=== PATIENT | male | born 1950 | race Caucasian/White ===

== ENCOUNTER 2021-04-09 12:03 | Emergency (ER) | payer OTHER, SELFPAY ==
[2021-04-09 12:19] VITALS: BP 113/75; PULSE 91; RESP 16; TEMP 36.8; O2SAT 93; BMI 25.0
--- NOTE | 2021-04-09 12:31 | ED_ITS ---
HPI - Altered Mental Status General: Chief Complaint: Altered Mental Status Stated Complaint: DIZZY/FATIGUE Time Seen by Provider: 04/09/21 12:31 History of Present Illness: HPI narrative: Mr Jackson is a 70-year-old gentleman with significant past medical history of chronic pain presents to the emergency department due to altered mental status. He reports extreme fatigue and lightheadedness with dizziness starting yesterday, he describes difficulty staying awake and unintentionally falling asleep. Symptoms progressed today such that he noticed difficulty thinking and also he noted difficulty thinking and also visual disturbances with possible double vision. Overall the intensity of symptoms has worsened. He denies other associated symptoms or trauma. He denies similar episodes in past. No other specific exacerbating or alleviating factors identified. He has been stable on his medications for an extended period of time but he does take morphine. Review of Systems General: Reports: 10 or more systems reviewed and unremarkable except in HPI and below Physical Exam Narrative: EXAM NARRATIVE: GENERAL/CONSTITUTIONAL -well appearing. No acute distress. Eyes - PERRL, 3 mm bilaterally,, no conjunctival injection ENMT - Atraumatic external nose and ears. Moist mucous membranes NECK - supple. trachea midline CARDIOVASCULAR - regular rate and rhythm. Peripheral pulses 2+ and equal RESPIRATORY -clear to auscultation bilaterally. No retractions or accessory muscle use. ABDOMEN/GI - Nontender, Nondistended. No tenderness to percussion or evidence of peritonitis MSK - Extremities without obvious deformity or tenderness to palpation SKIN - Warm, Dry NEURO - alert and appropriately oriented. Cranial nerves II through XII intact. Strength and sensation intact. Moves all extremities equally. Delayed res ponses. Mild encephalopathic appearance with abnormal affect. Course ED course: - Patient was seen and evaluated by me at bedside - Patient placed on cardiac monitors, IV access obtained - Initial evaluation notable for exam as noted above, mental status not normal though patient is oriented, no focal neurologic deficits appreciated on clinical exam. - Labs notable for no acute hematologic or metabolic abnormalities to explain patient's symptoms. ABG is mildly abnormal though compensated, mild elevation of PCO2 does not explain mental status, patient with normal oxygen saturation on monitor despite low PO2. - Imaging notable for sinusitis without other acute finding on head CT or CTA. - Despite period of observation patient's mental status continues to be abnormal, therefore MRI warranted. MRI is negative for acute stroke. If patient's mental status had been due to toxidrome I would have expected improvement by this time. - Upon serial reexamination after treatment the patient was similar - Based on patient history, evaluation, labs, and imaging as interpreted the most likely cause of the patient's condition is unspecified altered mental status. I discussed the results of ED evaluation with the patient, despite mental status changes I feel that he in conjugation with family at bedside can make reasonable medical decisions given thorough work-up at this time. I offered admission which the patient declined. He expressed logical and goal oriented reasoning including need to take care of his who has dementia. - The results of ED evaluation were discussed with the patient including prescriptions and/or symptomatic cares (if applicable) including appropriate and responsible use, followup plan, and return precautions. The patient verbalized understanding and felt safe for discharge. - Patient discharged in satisfactory condition. Vital Signs: Vital signs: Vital Signs Temperature 98.2 F 04/09/21 12:19 Pulse Rate 74 04/09/21 16:11 Respiratory Rate 16 04/09/21 12:19 Blood Pressure 121/89 04/09/21 16:11 Pulse Oximetry 94 04/09/21 15:00 MDM - Altered Mental Status Medical Records: Attestation: I reviewed the patient's medical records. Lab Data: Attestation: I reviewed the patient's lab results. Labs: Lab Results 04/09/21 04/09/21 04/09/21 12:45 12:45 12:45 WBC 7.7 10^3/uL 10^3/ uL (4.0-10.0) RBC 4.10 10^6/uL 10^6 /uL (4.1-5.3) Hgb 12.7 g/dL g/dL (11.7-16.6) Hct 39.4 % L % (42.0-52.0) MCV 96.1 fl H fl (80-94) MCH 31.0 pg pg (28.0-34.0) MCHC 32.2 g/dL g/dL (30.0-36.0) RDW 12.5 % % (12.1-15.1) Plt Count 115 10^3/cmm L 10 ^3/cmm (130-400) MPV 13.8 fL H fL (7.4-10.4) Neut % (Auto) 49.6 % % Lymph % (Auto) 30.4 % % Collier % (Auto) 12.2 % % Eos % (Auto) 6.2 % % Baso % (Auto) 1.2 % % Neut # (Auto) 3.83 10^3/uL 10^3 /uL (1.8-7.7) Lymph # (Auto) 2.3 10^3/uL 10^3/ uL (0.8-4.8) Collier # (Auto) 0.9 10^3/uL 10^3/ uL (0.2-0.9) Eos # (Auto) 0.5 10^3/uL 10^3/ uL (0.0-0.8) Baso # (Auto) 0.1 10^3/uL 10^3/ uL (0.0-0.1) Nucleated RBC % (a uto) 0 % % Nucleated RBCs # 0.0 /100WBC /100W BC Specimen Type Sample Site ABG pH ABG pCO2 ABG pO2 ABG HCO3 ABG Base Excess Suman Test Hematocrit O2 Delivery Device FiO2 Allocation Analyst ID Sodium 138 mmol/L mmol/L (136-145) Potassium 4.4 mmol/L mmol/L (3.5-5.1) Chloride 100 mmol/L mmol/L (98-107) Carbon Dioxide 29 mmol/L mmol/L (22-29) Anion Gap 13.4 (5-19) BUN 16 mg/dL mg/dL (8-23) Creatinine 0.5 mg/dL L mg/dL (0.7-1.2) GFR Calculation Not Reportable Glucose 96 mg/dL mg/dL (65-115) POC Glucose Calculated Osmolal ity 287 mOsm/kg mOsm/ kg (285-295) Lactate 1.2 mmol/L mmol/L (0.5-2.2) Calcium 9.2 mg/dL mg/dL (8.5-10.5) Total Bilirubin 0.2 mg/dL mg/dL (0.15-1.2) AST 24 U/L U/L (0-40) ALT 31 U/L U/L (0-41) Alkaline Phosphata se 68 IU/L IU/L (40-130) Troponin T Baselin e Troponin T 120 Min [place] Delta Troponin T Troponin T Hi Sens 6Hr Troponin T Hi Sens 6Hr Delta NT-Pro-B Natriuret Pep 98 pg/mL pg/mL (0-125) Total Protein 6.7 g/dL g/dL (6.6-8.7) Albumin 4.1 g/dL g/dL (3.5-5.2) Globulin 2.6 g/dL g/dL (1.3-4.6) TSH 3.04 uIU/mL uIU/m L (0.27-4.20) Urine Color Urine Appearance Urine pH Ur Specific Gravit y Urine Protein Urine Glucose (UA) Urine Ketones Urine Blood Urine Nitrate Urine Bilirubin Urine Urobilinogen Ur Leukocyte Norma ase 04/09/21 04/09/21 04/09/21 12:45 12:51 12:59 WBC RBC Hgb Hct MCV MCH MCHC RDW Plt Count MPV Neut % (Auto) Lymph % (Auto) Collier % (Auto) Eos % (Auto) Baso % (Auto) Neut # (Auto) Lymph # (Auto) Collier # (Auto) Eos # (Auto) Baso # (Auto) Nucleated RBC % (a uto) Nucleated RBCs # Specimen Type Arterial Sample Site Radial, left ABG pH 7.41 (7.35-7.45) ABG pCO2 49.7 mmHg H mmHg (35-45) ABG pO2 58.5 mmHg L mmHg (80.0-100.0) ABG HCO3 31.5 mmol/L H mmo l/L (22-26) ABG Base Excess 5.8 mmol/L H mmol /L (-2.0-2.0) Suman Test Pos Hematocrit 37.1 % L % (42-52) O2 Delivery Device Room air FiO2 21.0 % % Allocation Analyst ID Ed Sodium Potassium Chloride Carbon Dioxide Anion Gap BUN Creatinine GFR Calculation Glucose POC Glucose 90 mg/dL mg/dL (70-110) Calculated Osmolal ity Lactate Calcium Total Bilirubin AST ALT Alkaline Phosphata se Troponin T Baselin e 9 ng/L ng/L (0-15) Troponin T 120 Min [place] Delta Troponin T Troponin T Hi Sens 6Hr Troponin T Hi Sens 6Hr Delta NT-Pro-B Natriuret Pep Total Protein Albumin Globulin TSH Urine Color Urine Appearance Urine pH Ur Specific Gravit y Urine Protein Urine Glucose (UA) Urine Ketones Urine Blood Urine Nitrate Urine Bilirubin Urine Urobilinogen Ur Leukocyte Norma ase 04/09/21 04/09/21 04/09/21 14:13 15:08 20:25 WBC RBC Hgb Hct MCV MCH MCHC RDW Plt Count MPV Neut % (Auto) Lymph % (Auto) Collier % (Auto) Eos % (Auto) Baso % (Auto) Neut # (Auto) Lymph # (Auto) Collier # (Auto) Eos # (Auto) Baso # (Auto) Nucleated RBC % (a uto) Nucleated RBCs # Specimen Type Sample Site ABG pH ABG pCO2 ABG pO2 ABG HCO3 ABG Base Excess Suman Test Hematocrit O2 Delivery Device FiO2 Allocation Analyst ID Sodium Potassium Chloride Carbon Dioxide Anion Gap BUN Creatinine GFR Calculation Glucose POC Glucose Calculated Osmolal ity Lactate Calcium Total Bilirubin AST ALT Alkaline Phosphata se Troponin T Baselin e Troponin T 120 Min [place] 7.84 ng/L ng/L (0-15) Delta Troponin T -1.16 ABS# L ABS# (0-10) Troponin T Hi Sens 6Hr 10.11 ng/L ng/L (0-15) Troponin T Hi Sens 6Hr Delta 1.11 ng/L ng/L (0-12) NT-Pro-B Natriuret Pep Total Protein Albumin Globulin TSH Urine Color Straw (Yellow) Urine Appearance Clear (CLEAR) Urine pH 7 (5-7) Ur Specific Gravit y 1.010 (1.005-1.030) Urine Protein Neg (Negative) Urine Glucose (UA) Norm (Normal) Urine Ketones Negative (Negative) Urine Blood Neg (Negative) Urine Nitrate Negative (Negative) Urine Bilirubin Neg (Negative) Urine Urobilinogen Norm mg/dL mg/dL (Negative) Ur Leukocyte Norma ase Negative (Negative) EKG Data^: EKG 1: Attestation: I personally reviewed and interpreted this EKG as follows: EKG interpretation date: 04/03/21 EKG interpretation time: 12:37 Interpretation: Twelve-lead EKG shows a regular rhythm at a rate of 86. NC interval 171, QRS duration 106, QTc 400. Left axis deviation. Interpretation: Sinus rhythm, nonspecific ST segment abnormalities. EKG 2: Attestation: I personally reviewed and interpreted this EKG as follows: EKG interpretation date: 04/09/21 EKG interpretation time: 14:24 Interpretation: Twelve-lead EKG shows a regular rhythm at a rate of 75. NC interval 182, QRS duration 105, QTc 416. Left axis deviation. Interpretation: Sinus rhythm. Nonspecific ST segment abnormalities. Discharge Plan Discharge Patient Disposition: Home Clinical Impression: Altered mental status, Sinusitis Condition: Stable Prescriptions: New cefuroxime axetil 250 mg tablet 250 mg PO BID 7 Days Qty: 14 RF: 0 No Action morphine 60 mg tablet extended release 60 mg PO TID PRN (Reason: Pain) RF: 0 baclofen 10 mg tablet 10 mg PO TID PRN (Reason: Pain) RF: 0 mirtazapine 15 mg tablet 15 mg PO BEDTIME RF: 0 Discharge Orders: Discharge ED (Routine); Ordered 04/09/21 Ordered By: Jm Jensen Discharge Diet: Usual diet Discharge Activity: Resume usual activity Patient Instructions: Sinusitis (ED), Altered Mental Status (ED), Opioid Safety Activity Restrictions/Additional Instructions: Thank you for visiting the emergency department. You were seen and evaluated for altered mental status and falling asleep. The exact cause of your symptoms is unclear. Please follow-up with your primary care provider. Please return the emergency department for worsening symptoms, any new neurologic symptoms, or anything else that you are concerned about and feel needs emergency department evaluation. You will be treated for sinusitis with antibiotics. Please return to the emergency department for any signs of allergic reaction to the medications. Coding Level of Care Code ED Packing Room Inspector for Geraldo Peoples
--- NOTE | 2021-04-09 12:41 | CTR_ITS ---
PROCEDURE INFORMATION: Exam: CT Head Without Contrast Exam date and time: 04/09/2021 12:41 PM Age: 70 years old Clinical indication: Altered mental status/memory loss and malaise or fatigue; Confusion or disorientation; Patient HX: Ams/dizziness x 2 days TECHNIQUE: Imaging protocol: Computed tomography of the head without contrast. Radiation optimization: All CT scans at this facility use at least one of these dose optimization techniques: automated exposure control; mA and/or kV adjustment per patient size (includes targeted exams where dose is matched to clinical indication); or iterative reconstruction. COMPARISON: No relevant prior studies available. RADIATION DOSE METRICS: Total DLP (mGy-cm): 940.01 FINDINGS: Brain: Normal. No hemorrhage. Unremarkable white matter. No mass effect. Cerebral ventricles: No ventriculomegaly. Paranasal sinuses: Visualized sinuses are unremarkable. There are fluid levels present in the bilateral maxillary sinuses , the left ethmoid sinus, and the left sphenoid sinus. These findings likely represent acute sinusitis. Mastoid air cells: Visualized mastoid air cells are well aerated. Bones/joints: Unremarkable. No acute fracture. Soft tissues: Unremarkable. CT/CT head wo con* [id number] IMPRESSION: 1. No acute intracranial abnormality. 2. Acute sinusitis as noted. Radiation Dose CTDIVOL = (mGy): DLP = 940.01 (mGy-cm)
--- NOTE | 2021-04-09 12:41 | XRR_ITS ---
PROCEDURE INFORMATION: Exam: XR Chest Exam date and time: 04/09/2021 12:41 PM Age: 70 years old Clinical indication: Other: AMS TECHNIQUE: Imaging protocol: XR of the chest. Views: 1 view. COMPARISON: No relevant prior studies available. FINDINGS: Lungs: Unremarkable. No consolidation. Pleural spaces: Unremarkable. No pleural effusion. No pneumothorax. Heart/Mediastinum: Unremarkable. No cardiomegaly. Bones/joints: Unremarkable. XR/XR chest 1V portable [id number] IMPRESSION: No acute findings. Radiation Dose CTDIVOL = (mGy): DLP = (mGy-cm)
--- NOTE | 2021-04-09 12:41 | CTR_ITS ---
PROCEDURE INFORMATION: Exam: CT Angiography Head With Contrast, Arteriography Exam date and time: 04/09/2021 12:41 PM Age: 70 years old Clinical indication: Cognitive deficit and dizziness and giddiness; Altered mental status; Patient HX: Ams/dizziness x2 days TECHNIQUE: Imaging protocol: Computed tomography angiography of the head with contrast. Exam focused on the arteries. 3D rendering (Not supervised by radiologist): MIP and/or 3D reconstructed images were created by the technologist. Radiation optimization: All CT scans at this facility use at least one of these dose optimization techniques: automated exposure control; mA and/or kV adjustment per patient size (includes targeted exams where dose is matched to clinical indication); or iterative reconstruction. Contrast material: OMNI 350; Contrast volume: 95 ml; Contrast route: INTRAVENOUS (IV); COMPARISON: CT head wo con* [id number] 04/09/2021 2:40 PM RADIATION DOSE METRICS: Total DLP (mGy-cm): 2043.3 FINDINGS: ANTERIOR CIRCULATION: Right internal carotid artery: Unremarkable. Intracranial segment is patent with no significant stenosis. No aneurysm. Right middle cerebral artery: Unremarkable. No occlusion or significant stenosis. No aneurysm. Right anterior cerebral artery: Unremarkable. No occlusion or significant stenosis. No aneurysm. Left internal carotid artery: Unremarkable. Intracranial segment is patent with no significant stenosis. No aneurysm. Left middle cerebral artery: Unremarkable. No occlusion or significant stenosis. No aneurysm. Left anterior cerebral artery: Unremarkable. No occlusion or significant stenosis. No aneurysm. POSTERIOR CIRCULATION: Right vertebral artery: Asymmetrically large, No occlusion or significant stenosis. No aneurysm. Left vertebral artery: Asymmetrically small. No occlusion or significant stenosis. No aneurysm. Basilar artery: Unremarkable. No occlusion or significant stenosis. No aneurysm. Right posterior cerebral artery: Unremarkable. No occlusion or significant stenosis. No aneurysm. Left posterior cerebral artery: Unremarkable. No occlusion or significant stenosis. No aneurysm. Brain: No definite mass, mass effect, or midline shift. Cerebral ventricles: No ventriculomegaly. Bones/joints: Unremarkable. No acute fracture. Soft tissues: Unremarkable. IMPRESSION: No large vessel stenosis or occlusion. PROCEDURE INFORMATION: Exam: CT Angiography Neck With Contrast Exam date and time: 04/09/2021 12:41 PM Age: 70 years old Clinical indication: Cognitive deficit and dizziness and giddiness; Altered mental status; Patient HX: Ams/dizziness x2 days TECHNIQUE: Imaging protocol: Computed tomography angiography of the neck with contrast. 3D rendering (Not supervised by radiologist): MIP and/or 3D reconstructed images were created by the technologist. Radiation optimization: All CT scans at this facility use at least one of these dose optimization techniques: automated exposure control; mA and/or kV adjustment per patient size (includes targeted exams where dose is matched to clinical indication); or iterative reconstruction. Contrast material: OMNI 350; Contrast volume: 95 ml; Contrast route: INTRAVENOUS (IV); COMPARISON: CT head wo con* [id number] 04/09/2021 2:40 PM RADIATION DOSE METRICS: Total DLP (mGy-cm): 2044.3 FINDINGS: Right common carotid artery: No stenosis. No dissection or occlusion. Right internal carotid artery: No stenosis of the extracranial segment. No dissection or occlusion. Right external carotid artery: No occlusion or stenosis of the origin. Left common carotid artery: No stenosis. No dissection or occlusion. Left internal carotid artery: No stenosis of the extracranial segment. No dissection or occlusion. Left external carotid artery: No occlusion or stenosis of the origin. Right vertebral artery: No stenosis. No dissection or occlusion. Left vertebral artery: No stenosis. No dissection or occlusion. Soft tissues: Normal. No significant soft tissue swelling. Bones/joints: No acute fracture. CT/CT angio headneck* [id number] IMPRESSION: No stenosis or occlusion. REFERENCES: NASCET CRITERIA. The degree of internal carotid artery stenosis is based on NASCET criteria. Normal is no stenosis. Mild is less than 50% stenosis. Moderate is 50-69% stenosis. Severe is 70% to 99% stenosis. Total occlusion is no detectable patent lumen. Radiation Dose CTDIVOL = (mGy): DLP = 2044.3~2044.3 (mGy-cm)
--- NOTE | 2021-04-09 12:42 | ECG_ITS ---
[facility] Test Date: 2021-04-09 Pat Name: Addison Jackson Department: Room: Gender: Male Alignment Mechanic: : 1950 Requested By: Jm Jensen Order Number: [id number] Reading MD: SERENA REILLY Measurements Intervals [place] Rate: 86 P: 22 NC: 171 QRS: -33 QRSD: 106 T: -6 QT: 357 QTc: 428 Interpretive Statements SINUS RHYTHM LEFT AXIS DEVIATION [QRS AXIS < -30] LOW QRS VOLTAGE IN PRECORDIAL LEADS [QRS DEFLECTION < 1.0 mV IN CHEST LEADS] INCOMPLETE RIGHT BUNDLE BRANCH BLOCK [90+ ms QRS DURATION, TERMINAL R IN V1/V2, 40+ ms S IN I/aVL/V4/V5/V6] POSSIBLE ANTERIOR MYOCARDIAL INFARCTION , PROBABLY OLD [30 ms Q WAVE IN V3/V4, OR R < 0.2 mV IN V4] No previous ECG available for comparison Electronically Signed On 04-11-2021 12:54:53 THEATRICAL SCENIC DESIGNER by SERENA REILLY [id number] f
[2021-04-09 12:55] LABS: Glucose Point of Care 90 mg/dL (70-110)
[2021-04-09 13:09] LABS: ABG PCO2 49.7 mmHg (35-45); ABG PH Result 7.41 (7.35-7.45); Arterial Blood Gas Hematocrit 37.1 % (42-52); Base Excess ABG 5.8 mmol/L (-2.0-2.0); Blood Gas Allen Test Pos; Blood Gas Operator Identificat ED; Blood Gas Sample Site Radial, left; Blood Gas Sample Type Arterial; HCO3 ABG 31.5 mmol/L (22-26); Oxygen Device ROOM AIR; PO2 ABG 58.5 mmHg (80.0-100.0)
[2021-04-09 13:40] LABS: Basophils # 0.1 10^3/uL (0.0-0.1); Basophils % 1.2 %; Eosinophils # 0.5 10^3/uL (0.0-0.8); Eosinophils % 6.2 %; Hematocrit 39.4 % (42.0-52.0); Hemoglobin 12.7 g/dL (11.7-16.6); Lymphocytes # 2.3 10^3/uL (0.8-4.8); Lymphocytes % 30.4 %; Mean Corpuscular HGB Conc 32.2 g/dL (30.0-36.0); Mean Corpuscular Volume 96.1 fl (80-94); Mean Platelet Volume 13.8 fL (7.4-10.4); Monocytes # 0.9 10^3/uL (0.2-0.9); Monocytes % 12.2 %; Neutrophils # 3.83 10^3/uL (1.8-7.7); Neutrophils % 49.6 %; Nucleated Red Blood Cells % 0 %; Platelet Count 115 10^3/cmm (130-400); Red Cell Distribution Width 12.5 % (12.1-15.1); White Blood Count 7.7 10^3/uL (4.0-10.0)
[2021-04-09 13:48] LABS: Lactate (Lactic Acid level) 1.2 mmol/L (0.5-2.2)
[2021-04-09 13:50] LABS: Troponin(5th) Baseline 9 ng/L (0-15)
[2021-04-09 14:01] LABS: Alanine Aminotransferase 31 U/L (0-41); Albumin Level 4.1 g/dL (3.5-5.2); Alkaline Phosphatase 68 IU/L (40-130); Anion Gap 13.4 (5-19); Aspartate Amino Transferase 24 U/L (0-40); Blood Urea Nitrogen 16 mg/dL (8-23); Calcium 9.2 mg/dL (8.5-10.5); Carbon Dioxide 29 mmol/L (22-29); Chloride 100 mmol/L (98-107); Globulin 2.6 g/dL (1.3-4.6); Glucose 96 mg/dL (65-115); NT Pro B Type Natriuretic Pept 98 pg/mL (0-125); Osmolality Calculated 287 mOsm/kg (285-295); Potassium 4.4 mmol/L (3.5-5.1); Sodium 138 mmol/L (136-145); Thyroid Stimulating Hormone 3.04 uIU/mL (0.27-4.20); Total Bilirubin 0.2 mg/dL (0.15-1.2); Total Protein 6.7 g/dL (6.6-8.7)
[2021-04-09 14:25] VITALS: PULSE 75; O2SAT 97
--- NOTE | 2021-04-09 14:42 | ECG_ITS ---
[facility] Test Date: 2021-04-09 Pat Name: Addison Jackson Department: Room: Gender: Male Adjustment Clerk: : 1950 Requested By: Jm Jensen Order Number: [id number] Reading MD: SERENA REILLY Measurements Intervals [place] Rate: 75 P: 30 CA: 182 QRS: -26 QRSD: 105 T: 5 QT: 387 QTc: 433 Interpretive Statements SINUS RHYTHM LOW QRS VOLTAGE IN PRECORDIAL LEADS [QRS DEFLECTION < 1.0 mV IN CHEST LEADS] INCOMPLETE RIGHT BUNDLE BRANCH BLOCK [90+ ms QRS DURATION, TERMINAL R IN V1/V2, 40+ ms S IN I/aVL/V4/V5/V6] POSSIBLE ANTERIOR MYOCARDIAL INFARCTION , PROBABLY OLD [30 ms Q WAVE IN V3/V4, OR R < 0.2 mV IN V4] Compared to ECG 04/09/2021 12:33:43 Left-axis deviation no longer present Myocardial infarct finding still present Electronically Signed On 04-11-2021 13:00:24 DRUPAL PHP DEVELOPER by SERENA REILLY [id number]
[2021-04-09] MEDS: iohexol 350 mg/mL 100 mL Btl IV (14:50)
[2021-04-09 15:00] VITALS: PULSE 74; O2SAT 94
[2021-04-09 15:04] LABS: Add Urine Microscopic? NO; Charge for UA Resulting for Rev
[2021-04-09 15:19] LABS: Bilirubin Urine Neg (Negative); Blood Urine Neg (Negative); Glucose Urine UA Norm (Normal); Ketones Urine Negative (Negative); Leukocyte Esterase Urine Negative (Negative); Nitrate Urine Negative (Negative); Protein Urine Neg (Negative); Urine Appearance Clear (CLEAR); Urine Color Straw (Yellow); Urobilinogen Urine Norm (Negative); pH Urine 7 (5-7)
[2021-04-09 15:54] LABS: Troponin 5 2HR 7.84 ng/L (0-15)
[2021-04-09 15:55] LABS: Troponin 5 2HR Delta -1.16 ABS# (0-10)
[2021-04-09 16:11] VITALS: BP 121/89; BP 122/95; BP 124/87; PULSE 74; PULSE 80; PULSE 87
--- NOTE | 2021-04-09 16:35 | MRR_ITS ---
PROCEDURE INFORMATION: Exam: MR Head Without Contrast Exam date and time: 04/09/2021 4:35 PM Age: 70 years old Clinical indication: Altered mental status/memory loss and dizziness; Confusion or disorientation; Additional info: Dizziness, AMS TECHNIQUE: Imaging protocol: MR of the head without contrast. COMPARISON: CT head wo con* [id number] 04/09/2021 2:40 PM FINDINGS: Brain: Mild periventricular white matter hyperintensities can represent very mild chronic small vessel ischemic change. No restricted diffusion. Cerebral ventricles: Normal. No ventriculomegaly. Bones/joints: Unremarkable. Paranasal sinuses: Fluid and mucosal thickening noted in multiple paranasal sinuses. Mastoid air cells: Normal as visualized. No mastoid effusion. Orbital cavity: Unremarkable. Soft tissues: Unremarkable. MR/MR head wo con* [id number] IMPRESSION: Sinus inflammatory changes. No acute intracranial findings. Radiation Dose CTDIVOL = (mGy): DLP = (mGy-cm)
[2021-04-09 21:11] LABS: Troponin 5 6HR 10.11 ng/L (0-15); Troponin 5 6HR Delta 1.11 ng/L (0-12)
== END 2021-04-09 20:41 | disposition home or self-care (01) ==
PROVIDERS: Emergency Provider Emergency Medicine
DX: R41.82 Altered mental status, unspecified (principal); J32.9 Chronic sinusitis, unspecified
CPT/HCPCS: 36416; 36600; 70450; 70496; 70498; 70551; 71045; 80053; 81003; 82803; 82962; 83605; 83880; 84443; 84484; 85025; 93005; 99283; Q9967

== ENCOUNTER 2022-02-10 09:32 | Outpatient (CLI) | payer OTHER, SELFPAY ==
--- NOTE | 2022-02-10 | ECG_ITS ---
[facility] Test Date: 2022-02-10 Pat Name: Addison Jackson Department: Room: Gender: Male Associate Buyer: : 1950 Requested By: SEFERINO Contreras Order Number: [id number] Brie MD: Satish Post M.D. Interpretive Statements NAME OF STUDY: LEXISCAN INDICATION: [cp on exertion, ] Procedure: At the baseline, the blood pressure was 113/81mmHg with a heart rate of 56 bpm. The electrocardiogram showed normal sinus bradycardia, normal axis with normal ST and T's. The Lexiscan was infused over a period of 20 seconds. A total of 0.4 mg of Lexiscan was infused. The stress phase was continued for a total of 5 minutes. Heart rate was at the end of stress phase was 74 bpm and a blood pressure of 108/67 mmHg. The EKG at the peak infusion revealed normal sinus rhythm with no significant ST-T wave changes. Sestamibi was injected 20 seconds after the Lexiscan infusion. Blood pressure at the end of recovery phase was 109/69 mmHg with a heart rate of 70 bpm. Conclusion: 1. Normal EKG response to Lexiscan infusion 2. No Lexiscan induced chest pain or cardiac arrhythmia. 3. Normal blood pressure and heart rate response. 4. Sestamibi/sestamibi perfusion scan pending; see separate report. Electronically Signed On 02-20-2022 10:03:16 CDT by Satish Post M.D. [id number]
[2022-02-10 09:51] VITALS: BMI 24.3
--- NOTE | 2022-02-10 10:17 | NMCV_ITS ---
NM alison perf SPECT r/s* [id number] Addison Jackson Age: 71 Gender: M : 1950 Exam Date: 02/10/2022 10:17 Ordering Phys: SEFERINO CAMARA Technologist: DENIA Jennings Exam Location: [facility] Indications: Chest Pain, Shortness of Breath STRESS TEST Please see separate stress test report [facility] for full findings IMAGE PROTOCOL Rest/Stress 1 Lexiscan Day Radiopharmaceutical Dose (mCi) Administration Site Administered by Rest: Tc-99m 11.0 IV Evie Louisa, SENIOR NET DEVELOPER Sestamibi Stress:Tc-99m 32.6 IV Evie Louisa, SENIOR NET DEVELOPER Sestamibi Rest: 10-Feb-2022 60 Discovery 630 Stress: 10-Feb-2022 30 Discovery 630 0.4mg Lexiscan. Images obtained in supine and prone position. SPECT RESULTS Technical Quality: Excellent Raw Data Analysis: Normal Image Corrections: No attenuation or motion correction applied Summed Stress Score: 2 Summed Rest Score: 1 Summed Difference Score: 2 PERFUSION FINDINGS There is a small in size, reversible perfusion defect in apical lateral and inferolateral wall. This is consistent with small sized area of ischemia in left circumflex artery territory. FUNCTIONAL RESULTS (calculated via Gated SPECT) Stress Image LV EF (%): 63 Stress EDV (mL):91 TID: 0.87 Stress ESV (mL):34 FUNCTIONAL FINDINGS: There is normal left ventricular systolic function. IMPRESSIONS 1. Small sized area of ischemia seen in left circumflex artery territory. 2. Normal LV systolic function is normal. Satish Post MD (Electronically Signed) Final Date: 11 February 2022 22:28 S
[2022-02-10] MEDS: regadenoson 0.4 Mg/5 ml Syringe IVP (12:07)
[2022-02-10 12:31] VITALS: BP 109/69; PULSE 70
== END 2022-02-10 09:33 | disposition home or self-care (01) ==
PROVIDERS: PCP Nurse Practitioner Adult Health; Visit Provider Nurse Practitioner Adult Health
DX: R07.9 Chest pain, unspecified (principal); R06.02 Shortness of breath
CPT/HCPCS: 78452; 93017; A9500; J2785

== ENCOUNTER → 2022-05-10 12:11 | Outpatient (BNVA) | payer OTHER, SELFPAY | PROVIDERS: PCP Nurse Practitioner Adult Health; Visit Provider Internal Medicine | DX: R07.9 Chest pain, unspecified (principal); M06.9 Rheumatoid arthritis, unspecified | CPT/HCPCS: 93005; 99204 ==

== ENCOUNTER 2022-05-23 07:38 | Outpatient (CLI) | payer OTHER, SELFPAY ==
[2022-05-23] VITALS (24 sets, daily range): BP systolic 80–115; BP diastolic 50–78; PULSE 49–66; RESP 6–20; TEMP 36.6; O2SAT 85–100; BMI 25.8
--- NOTE | 2022-05-23 07:30 | XACV_ITS ---
Exam Room: 2 Ht: 175 cm Wt: 79 kg BSA: 1.98 m2 Gender: Male : 1950 Any Known Allergies: Penicillins Exam Priority: Routine Procedure(s): Procedure Description: Diagnostic procedure Procedure Description: Left Heart Catheterization Procedure Description: Left ventriculography Procedure Description: Coronary Angiography Diagnostic Cath Status: Elective Diagnostic Findings * INDICATION: 72-year-old man with past medical history of hyperlipidemia and rheumatoid arthritis who has been having on and off chest discomfort episodes for the last 1 year. Has noted recent worsening of symptoms. He had stress test performed recently that showed ischemia in left circumflex artery territory. Plan for coronary angiogram with possible percutaneous coronary intervention. * No significant disease noted in the Left Main, Left Anterior Descending, Right, or Circumflex coronary arteries. * Coronary angiography shows right dominance. Conclusions 1. No significant disease noted in the Left Main, Left Anterior Descending, Right, or Circumflex coronary arteries. 2. Normal left ventricular systolic function. Ejection fraction of 55%. Recommendations * Aggressive risk factor modification. * Outpatient cardiology follow up in 4 weeks. Interventional RX Recommendation: medical therapy and/or counseling Diagnostic RX Recommendation: medical therapy and/or counseling Anticoagulation: Heparin Ventriculography Ejection Fraction: 55.0 % Pressures Phase:Rest AO : 98 / 64 ( 80 ) @ 10:16:00 AM 102 / 61 ( 79 ) @ 10:22:00 AM 101 / 59 ( 78 ) @ 10:22:00 AM LV : 102 / -2 / 16 @ 10:21:00 AM 96 / 3 / 14 @ 10:22:00 AM 99 / 2 / 19 @ 10:22:00 AM Valves Phase:DefaultPhase AV : 0.0 @ 10:27:43 AM AV Mean Gradient: 0.0 @ 10:27:43 AM Clinical Evaluation EBL: 5mL-10mL Procedural Details Procedure Consent Obtained. Admit Source: Out Patient. Pre-Procedure Time Out. Identified patient by full name and date of as verbalized by the patient/guarantor. Does the consent match the physician's order: Yes. Accurate & Complete Informed Consent: Yes. Inpatient/Outpatient History & Physical on Chart: Yes. If H&P is completed, is and addenduem needed: No; If yes, is the addendum complete: N/A. Visualize and Verify Site with Patient/Guarantor: N/A. Relevant Radiology Images available: N/A. The risks, benefits, and alternatives of sedation and/or procedure were discussed by physician. The patient agrees to continue. Procedure started. [facility] Clinical Fraility Score: 4: Vulnerable. 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 Chest Pain Symptom Assessment: Typical Angina Symptoms. Cardiovascular Instability: No. Correct patient, site and procedure confirmed by cath team. Current diagnosis: Chest Pain. PERRLA. Strong, equal hand pediatric oncology nurse bilaterally. Lungs clear x 5 lobes. IV Site on Arrival: 20 gauge in the left anticubital. IV Fluids: 0.9% NaCl at KVO. 0 mL infused prior to director of labor relations. Pre Procedural Pulses: bilateral radial was 3+. Pre Procedural Pulses: bilateral posterior tibial was 2+. Pre Procedural Pulses: bilateral dorsalis pedis was 2+. Oxygen started at 2liters/min via nasal canula. right groin was prepped with chloroprep then draped in the usual sterile fashion. right radial was prepped with chloroprep then draped in the usual sterile fashion. Physician notified. Baseline sample Acquired. HR: 56 BPM. Physician arrived. Physician scrubbed in. Immediate Pre-Procedure Time Out. Correct Patient: Yes; Correct Procedure: Yes; Correct Site: Yes; Correct Patient Position: Yes; Correct Supplies: Yes; Dried Flammable Prep: Yes; Blood Products Available: N/A;. Lidocaine 1% infiltrated to the right radial. Arterial access obtained. A 5 bangladeshi TIG catheter in over wire. Multiple views taken of left coronary artery. Catheter redirected to the RCA. Multiple views taken of right coronary artery. Catheter out. A 5 bangladeshi Angled Pig catheter in over wire. EDP Sample taken: LV 102/-3,16; HR: 58 BPM; SpO2: 99%. Aortogram performed in LUNDY @ 10 mL/second for a total of 30 mL. EDP Sample taken: LV 96/3,14; HR: 46 BPM; SpO2: 99%. Pullback taken: LV 99/2,19; AO 102/61(79); Mean: 0mmHg, Peak to Peak: 0mmHg, SEP: 4sec/min; HR: 57 BPM; SpO2: 99%. A TR Band was successful obtaining hemostatsis at the Right Radial artery insertion site. Post Procedure: Pulses reassessed and unchanged. PERRLA. Strong, equal hand pediatric oncology nurse bilaterally. No VTE prophylaxis required. Medication's Wasted: Nitro = 49.8 mg. Medication's Wasted: Heparin = 1000 units. Total IV fluids: 50 mL. Post-op diagnosis: non-obstructive CAD. Complications: none. Estimated blood loss: 5mL-10mL. Responsiveness - Normal response to verbal stimuli; alert and oriented, PERRLA. Airway - Unaffected, no intervention required; spontaneous ventilation. Circulation: W/N/L, pulses unchanged. Nausea/Vomiting: No. Procedure completed. Patient transferred by bed to CPRU. Vital chart was stopped. Access Site Site: Right Radial artery Sheath Size: 6 Fr Hemostasis Method: TR Band Hemostasis Success: Successful Procedure Medications Start: 10:11 AM Stop: 10:11 AM Medication: Versed Amount: 1 mg Route: I.V. Start: 10:11 AM Stop: 10:11 AM Medication: Fentanyl Amount: 50 mcg Route: I.V. Start: 10:13 AM Stop: 10:13 AM Medication: Nitrogylcerin Amount: 200 mcg Route: I.A. Start: 10:17 AM Stop: 10:17 AM Medication: Versed Amount: 1 mg Route: I.V. Start: 10:17 AM Stop: 10:17 AM Medication: Fentanyl Amount: 50 mcg Route: I.V. Start: 10:17 AM Stop: 10:17 AM Medication: Heparin Amount: 5000 units Route: I.V. I, the attending physician, have reviewed and verified all procedure medications. Yes, all medications given per verbal order History/Risk Factors Hypertension: No Dyslipidemia: Yes Peripheral Arterial Disease (PAD): No Myocardial Infarction (AR): No Obesity: No Tobacco Use: Never Prior Interventions PCI: No CABG: No Valve Surgery: No Report Signatures Finalized by Satish Post MD on 05/25/2022 12:30 PM
[2022-05-23] MEDS: diphenhydrAMINE 50 mg Capsule PO (08:20)
[2022-05-23 08:37] LABS: Basophils # 0.1 10^3/uL (0.0-0.1); Basophils % 1.2 %; Eosinophils # 0.5 10^3/uL (0.0-0.8); Eosinophils % 7.1 %; Hematocrit 38.3 % (42.0-52.0); Hemoglobin 12.2 g/dL (11.7-16.6); Lymphocytes # 3.1 10^3/uL (0.8-4.8); Lymphocytes % 40.6 %; Mean Corpuscular HGB Conc 31.9 g/dL (30.0-36.0); Mean Corpuscular Hemoglobin 30.8 pg (28.0-34.0); Mean Corpuscular Volume 96.7 fl (80-94); Mean Platelet Volume 11.4 fL (7.4-10.4); Monocytes # 0.7 10^3/uL (0.2-0.9); Monocytes % 8.9 %; Neutrophils # 3.19 10^3/uL (1.8-7.7); Neutrophils % 41.9 %; Nucleated Red Blood Cells % 0 %; Platelet Count 184 10^3/cmm (130-400); Red Blood Count 3.96 10^6/uL (4.1-5.3); Red Cell Distribution Width 13.3 % (12.1-15.1); White Blood Count 7.6 10^3/uL (4.0-10.0)
[2022-05-23 08:57] LABS: Blood Urea Nitrogen 30 mg/dL (8-23); Calcium 8.5 mg/dL (8.5-10.5); Carbon Dioxide 28 mmol/L (22-29); Chloride 103 mmol/L (98-107); Glucose 89 mg/dL (65-115); Osmolality Calculated 296 mOsm/kg (285-295); Sodium 140 mmol/L (136-145)
--- NOTE | 2022-05-23 10:07 | W.PM.OPSUD ---
Surgery/Procedure H&P Update DATE OF PROCEDURE: May 23, 2022 DATE H&P PERFORMED: 05/10/22 H&P UPDATE INFORMATION: I have reviewed H&P completed within last 30 days, I have examined patient prior to procedure and No changes to prior documentation PREOP DIAGNOSIS: Chest pain/abnormal stress test PRIMARY INDICATION FOR PROCEDURE: Chest pain/abnormal stress test PLANNED PROCEDURE: Operation Date: 05/23/22 08:30 Proposed Procedures p Left Heart Cath 39189,R94.39,R07.9,R06.09(Left) - Satish Post M.D Possible percutaneous coronary intervention PATIENT REASSESSED PRIOR TO SEDATION, WITH NO CHANGE NOTED: Yes PHYSICAL EXAM: alert, oriented x 3, clear to auscultation bilaterally and regular rate & rhythm AIRWAY EVAL/ANESTHESIA PLAN: normal airway, ASA III, Risks, benefits & alternatives of sedation and/or procedure discussed and Patient agrees to continue as planned ADDITIONAL INFORMATION: Moderate sedation
--- NOTE | 2022-05-23 13:07 | PC.NURSE ---
Around 1230: Transfer orders received. Vitals stable, TR Band in place. Report given to GIBSON Shields. Patient transferred to CSU, all personal belongings sent with patient to room.
--- NOTE | 2022-05-23 19:15 | PC.NURSE ---
Pt discharged home at approximately 1700. Pts discharge instructions given along with follow up appointments. Pts IV removed no redness or swelling noted. Pt had no c/o pain or discomfort at the time of discharge. Pt transferred out via wheel chair accompanied by staff.
== END 2022-05-23 17:30 | disposition home or self-care (01) ==
LOC: CCL 07:41 → CSU 12:48
PROVIDERS: PCP Nurse Practitioner Adult Health; Visit Provider Internal Medicine
DX: R07.89 Other chest pain (principal); R94.39 Abnormal result of other cardiovascular function study; E78.5 Hyperlipidemia, unspecified; M06.9 Rheumatoid arthritis, unspecified; I45.10 Unspecified right bundle-branch block
CPT/HCPCS: 36415; 80048; 85025; 93458; 96361; 96365; 99152; C1769; C1887; C1894; J1644; J2250; J3010; J3490; J7030; Q0163; Q9967

== ENCOUNTER 2023-02-05 13:02 | Emergency (ER) | payer OTHER, SELFPAY ==
[2023-02-05 13:04] VITALS: BP 138/69; PULSE 66; RESP 16; TEMP 36.7; O2SAT 93; BMI 26.6
--- NOTE | 2023-02-05 13:25 | ED_ITS ---
HPI - Dizziness General: Chief Complaint: Dizziness Stated Complaint: dizziness Time Seen by Provider: 02/05/23 13:06 Source: patient Mode of arrival: EMS History of Present Illness: HPI Narrative: 72-year-old male presents emergency room via EMS he had an episode of dizziness at home he states he was repositioning self in bed and something at very dizzy he says he felt like his eyes were moving rapidly after about 10 to 15 minutes resolved he is able to get up and walk and get a drink he had a slight recurrence of dizziness but that is resolved as well when he arrives here he is completely asymptomatic no recent falls or head trauma. Is not on any oral anticoagulation. He has had problems with vertigo in the past. He states this is somewhat worse. He had some nausea but never vomited. No other focal symptoms either prior to arrival or on arrival here. Symptoms not reproducible at this time. MD elicited complaint: dizziness Pertinent past history: BPPV Onset (ago): hour(s) Timing: sudden onset Severity: moderate Description: sense of movement and room spinning Context: change in body position History of similar symptoms: Yes Exacerbating factors: nothing Relieving factors: nothing Associated symptoms: Denies abnormal vaginal bleeding, change in hearing, chest pain, chills, cough, diaphoresis, ear discharge, ear pressure, fevers/chills, headache(s), malaise, nausea, nasal congestion, palpitations, rash, short of breath, syncope, tinnitus, vomiting or weakness Associated neuro symptoms: Deny confusion, difficulty speaking, dysphagia, dipl opia, extremity weakness, facial numbness, facial weakness, gait changes, numbness in extremities or visual changes Review of Systems Const: Denies: fever(s), chills, fatigue, malaise or diaphoresis ENMT: Denies: throat pain, ear discharge, change in hearing, tinnitus or nasal congestion Card: Denies: chest pain, palpitations or syncope Resp: Denies: dyspnea, productive cough or non-productive cough GI: Denies: abdominal pain, nausea, vomiting or dysphagia : Denies: flank pain, dysuria, urinary frequency or urinary urgency Musc: Denies: neck pain or back pain Skin/Breast: Denies: rash or pruritus Neuro: Reports: vertigo; Denies: headache(s), numbness in extremities or confusion PFS ED PFSH: Medical History Rheumatoid arthritis Social History Smoking and tobacco status: never smoked Physical Exam Const: COMMON NORMALS: no acute distress GENERAL APPEARANCE: cooperative and comfortable ORIENTATION/CONSCIOUSNESS: Yes awake, Yes oriented to person, Yes oriented to place and Yes oriented to time HENMT: COMMON NORMALS: normocephalic, atraumatic and hearing grossly normal bi laterally HEAD & SCALP: normocephalic and atraumatic Resp: COMMON NORMALS: normal respiratory effort, No retractions, No use of accessory muscles and clear to auscultation bilaterally AUSCULTATION: clear to auscultation bilaterally Cardio: COMMON NORMALS: regular rate, regular rhythm and No murmurs present (Cardio) RATE: regular rate RHYTHM: regular rhythm GI: COMMON NORMALS: Soft to palpation and No hepatosplenomegaly present AUSCULTATION: Yes normoactive bowel sounds PALPATION: Yes Soft to palpation, No Tenderness to palpation present (GI), No Guarding due to palpation present (GI) and Yes No hepatosplenomegaly present Extremity: COMMON NORMALS: normal to inspection, capillary refill normal, no clubbing, cyanosis or edema, no calf tenderness and no pedal edema Neuro: SENSORIUM/ORIENTATION: Yes oriented to person, Yes oriented to place and Yes oriented to time OTHER: No focal neurologic deficits noted on exam Skin: COMMON NORMALS: no rashes or lesions noted GENERAL SKIN EXAM: no rashes or lesions noted Course Vital Signs: Vital signs: Vital Signs Temperature 98.0 F 02/05/23 13:04 Pulse Rate 66 02/05/23 13:04 Respiratory Rate 16 02/05/23 13:04 Blood Pressure 138/69 02/05/23 13:04 Pulse Oximetry 93 02/05/23 13:04 Oxygen Delivery Me thod Room Air 02/05/23 13:04 MDM - Dizziness Medical Decision Making No focal neurologic deficits. Symptoms reproducible. Symptoms resolved unless exacerbated in the emergency room. He has no signs or symptoms suggestive of posterior circulation stroke. We will discharge patient home meclizine to use. Follow-up as needed Medical Records I reviewed the patient's medical records. Lab Data I reviewed the patient's lab results. 02/05/23 13:20 02/05/23 13:35 Laboratory Results WBC 6.85 10^3/uL (3.29-11.43) 02/05/23 13:20 RBC 4.36 10^6/uL (3.85-5.65) 02/05/23 13:20 Hgb 13.40 g/dL (11.27-16.99) 02/05/23 13:20 Hct 42.9 % (37-53) 02/05/23 13:20 MCV 98.4 fl (82-101) 02/05/23 13:20 MCH 30.7 pg (27-33) 02/05/23 13:20 MCHC 31.2 g/dL (30-55) 02/05/23 13:20 RDW 12.3 % (12.1-15.1) 02/05/23 13:20 Plt Count 195 10^3/cmm (157-399) 02/05/23 13:20 MPV 11.1 fL (7.4-10.4) H 02/05/23 13:20 Neut % (Auto) 53.9 % 02/05/23 13:20 Lymph % (Auto) 27.4 % 02/05/23 13:20 [place] % (Auto) 8.3 % 02/05/23 13:20 Eos % (Auto) 9.1 % 02/05/23 13:20 Baso % (Auto) 1.2 % 02/05/23 13:20 Neut # (Auto) 3.69 10^3/uL (1.8-7.7) 02/05/23 13:20 Lymph # (Auto) 1.9 10^3/uL (0.8-4.8) 02/05/23 13:20 [place] # (Auto) 0.6 10^3/uL (0.2-0.9) 02/05/23 13:20 Eos # (Auto) 0.6 10^3/uL (0.0-0.8) 02/05/23 13:20 Baso # (Auto) 0.1 10^3/uL (0.0-0.1) 02/05/23 13:20 Nucleated RBC % (auto) 0 % 02/05/23 13:20 Nucleated RBCs # 0.0 /100WBC 02/05/23 13:20 Sodium 137 mmol/L (136-145) 02/05/23 13:35 Potassium 3.9 mmol/L (3.5-5.1) 02/05/23 13:35 Chloride 102 mmol/L (98-107) 02/05/23 13:35 Carbon Dioxide 26 mmol/L (22-29) 02/05/23 13:35 Anion Gap 12.9 (5-19) 02/05/23 13:35 BUN 16 mg/dL (8-23) 02/05/23 13:35 Creatinine 0.7 mg/dL (0.7-1.2) 02/05/23 13:35 GFR Calculation Not Reportable 02/05/23 13:35 Glucose 98 mg/dL (65-115) 02/05/23 13:35 Calculated Osmolality 285 mOsm/kg (285-295) 02/05/23 13:35 Calcium 8.9 mg/dL (8.5-10.5) 02/05/23 13:35 Total Bilirubin 0.5 mg/dL (0.15-1.2) 02/05/23 13:35 AST 17 U/L (0-40) 02/05/23 13:35 ALT 13 U/L (0-41) 02/05/23 13:35 Alkaline Phosphatase 90 U/L (40-130) 02/05/23 13:35 Total Protein 6.7 g/dL (6.6-8.7) 02/05/23 13:35 Albumin 3.6 g/dL (3.5-5.2) 02/05/23 13:35 Globulin 3.1 g/dL (1.3-4.6) 02/05/23 13:35 Urine Color Yellow (Yellow) 02/05/23 14:49 Urine Appearance Clear (CLEAR) 02/05/23 14:49 Urine pH 8 (5-7) H 02/05/23 14:49 Ur Specific [place] 1.010 (1.005-1.030) 02/05/23 14:49 Urine Protein Neg (Negative) 02/05/23 14:49 Urine Glucose (UA) Norm (Normal) 02/05/23 14:49 Urine Ketones Negative (Negative) 02/05/23 14:49 Urine Blood Neg (Negative) 02/05/23 14:49 Urine Nitrate Negative (Negative) 02/05/23 14:49 Urine Bilirubin Neg (Negative) 02/05/23 14:49 Prot Sulfosalicylic Acd Negative (Negative) 02/05/23 14:49 Urine Urobilinogen Norm mg/dL (Negative) 02/05/23 14:49 Ur Leukocyte Esterase Negative (Negative) 02/05/23 14:49 No radiology studies performed this visit Discharge Plan Discharge Patient Disposition: Home Clinical Impression: Vertigo Condition: Stable Prescriptions: New meclizine 25 mg tablet 25 mg PO QID PRN (Reason: dizziness) Qty: 14 0RF No Action atorvastatin 20 mg tablet 20 mg PO BEDTIME ondansetron HCl 8 mg tablet 8 mg PO DAILY PRN (Reason: Nausea) Humira Pen 40 mg/0.8 mL pen injector kit 40 mg SUBCUT Q14D Qty: 2 4RF morphine 60 mg tablet extended release 60 mg PO TID aspirin 325 mg Tablet 325 mg PO DAILY alprazolam 1 mg tablet 1 mg PO BEDTIME PRN (Reason: Insomnia) Tylenol Ex Str Rapid Release 500 mg Tablet 1,000 mg PO Q6H PRN (Reason: Pain) mirtazapine 30 mg tablet 30 mg PO BEDTIME Discharge Orders: Discharge ED (Routine); Ordered 02/05/23 Ordered By: Kingsley Ng Referrals: SEFERINO CAMARA [Primary Care Provider] - Discharge Diet: Usual diet Discharge Activity: Increase activity as tolerated Patient Instructions: Vertigo (ED), Opioid Safety, Pain Management Coding Level of Care Code ED Sulfuric Acid Plant Supervisor for Geraldo Peoples
[2023-02-05 13:26] LABS: Basophils # 0.1 10^3/uL (0.0-0.1); Basophils % 1.2 %; Eosinophils # 0.6 10^3/uL (0.0-0.8); Eosinophils % 9.1 %; Hematocrit 42.9 % (37-53); Lymphocytes # 1.9 10^3/uL (0.8-4.8); Lymphocytes % 27.4 %; Mean Corpuscular HGB Conc 31.2 g/dL (30-55); Mean Corpuscular Hemoglobin 30.7 pg (27-33); Mean Corpuscular Volume 98.4 fl (82-101); Mean Platelet Volume 11.1 fL (7.4-10.4); Monocytes # 0.6 10^3/uL (0.2-0.9); Monocytes % 8.3 %; Neutrophils # 3.69 10^3/uL (1.8-7.7); Neutrophils % 53.9 %; Nucleated Red Blood Cells % 0 %; Platelet Count 195 10^3/cmm (157-399); Red Blood Count 4.36 10^6/uL (3.85-5.65); Red Cell Distribution Width 12.3 % (12.1-15.1); White Blood Count 6.85 10^3/uL (3.29-11.43)
--- NOTE | 2023-02-05 13:37 | PC.PHAR ---
pt states he takes care of his own medications-pt states he stop taking lasix,zoloft,and spironolactone pt states theyre maybe more he stop taking but unsure of the names of the meds he stop taking-pt states he is taking the medications entered-pt states [facility] [place]-waiting for [facility] med list to be faxed back
--- NOTE | 2023-02-05 13:42 | ECG_ITS ---
[facility] Test Date: 2023-02-05 Pat Name: Addison Jackson Department: Room: Gender: Male Baby Attendant: : 1950 Requested By: Kingsley Contreras Order Number: [id number] Brie MD: Satish Post M.D. Measurements Intervals [place] Rate: 72 P: 52 [place]: 172 QRS: -11 QRSD: 108 T: 15 QT: 428 QTc: 470 Interpretive Statements SINUS RHYTHM WITH FREQUENT VENTRICULAR PREMATURE COMPLEXES LOW QRS VOLTAGE IN PRECORDIAL LEADS [QRS DEFLECTION < 1.0 mV IN CHEST LEADS] INCOMPLETE RIGHT BUNDLE BRANCH BLOCK [90+ ms QRS DURATION, TERMINAL R IN V1/V2, 40+ ms S IN I/aVL/V4/V5/V6] Compared to ECG 04/09/2021 14:21:36 Ventricular premature complex(es) now present Myocardial infarct finding no longer present Electronically Signed On 02-05-2023 16:15:18 CDT by Satish Post M.D. [email or web address]
[2023-02-05 14:01] LABS: Alanine Aminotransferase 13 U/L (0-41); Albumin Level 3.6 g/dL (3.5-5.2); Alkaline Phosphatase 90 U/L (40-130); Anion Gap 12.9 (5-19); Aspartate Amino Transferase 17 U/L (0-40); Blood Urea Nitrogen 16 mg/dL (8-23); Calcium 8.9 mg/dL (8.5-10.5); Carbon Dioxide 26 mmol/L (22-29); Chloride 102 mmol/L (98-107); Globulin 3.1 g/dL (1.3-4.6); Glucose 98 mg/dL (65-115); Osmolality Calculated 285 mOsm/kg (285-295); Potassium 3.9 mmol/L (3.5-5.1); Sodium 137 mmol/L (136-145); Total Bilirubin 0.5 mg/dL (0.15-1.2); Total Protein 6.7 g/dL (6.6-8.7)
--- NOTE | 2023-02-05 14:07 | PC.NURSE ---
Ambulated patient in his room and up and down the hallway. Patient states that he is lightheaded but is not dizzy per say.
[2023-02-05 15:10] LABS: Add Urine Microscopic? NO; Charge for UA Resulting for Rev
[2023-02-05 15:20] LABS: Bilirubin Urine Neg (Negative); Blood Urine Neg (Negative); Glucose Urine UA Norm (Normal); Ketones Urine Negative (Negative); Nitrate Urine Negative (Negative); Protein Urine Neg (Negative); Urine Appearance Clear (CLEAR); Urine Color Yellow (Yellow); pH Urine 8 (5-7)
[2023-02-05 15:21] LABS: Leukocyte Esterase Urine Negative (Negative); Sulfosalicylic Acid Urine Negative (Negative); Urobilinogen Urine Norm (Negative)
== END 2023-02-05 15:32 | disposition home or self-care (01) ==
PROVIDERS: Emergency Provider Family Medicine; PCP Nurse Practitioner Adult Health
DX: R42 Dizziness and giddiness (principal); Z79.82 Long term (current) use of aspirin
CPT/HCPCS: 36415; 80053; 81003; 85025; 93005; 99284

== ENCOUNTER → 2023-02-23 11:36 | Outpatient (BNVA) | payer OTHER, SELFPAY | PROVIDERS: PCP Nurse Practitioner Adult Health; Visit Provider Internal Medicine | DX: I00 Rheumatic fever without heart involvement (principal) | CPT/HCPCS: 73502; 99214 ==

== ENCOUNTER → 2023-04-27 09:28 | Outpatient (BNVA) | payer OTHER, SELFPAY | PROVIDERS: PCP Nurse Practitioner Adult Health; Visit Provider Internal Medicine | DX: M06.9 Rheumatoid arthritis, unspecified (principal); M25.50 Pain in unspecified joint; Z72.0 Tobacco use; F41.9 Anxiety disorder, unspecified | CPT/HCPCS: 99214 ==

== ENCOUNTER 2023-07-17 15:38 | Emergency (ER) | payer OTHER, SELFPAY ==
[2023-07-17 15:41] VITALS: BP 111/76; PULSE 55; RESP 18; TEMP 37.1; O2SAT 95; BMI 26.6
--- NOTE | 2023-07-17 15:41 | XRR_ITS ---
PROCEDURE INFORMATION: Exam: XR Chest Exam date and time: 07/17/2023 3:51 PM Age: 73 years old Clinical indication: Screening exam; Other screening TECHNIQUE: Imaging protocol: Radiologic exam of the chest. Views: 1 view. COMPARISON: CR XR chest 1V portable [id number] 04/09/2021 1:12 PM FINDINGS: Lungs: No focal consolidation. Pleural spaces: No pleural effusion. No pneumothorax. Heart/Mediastinum: No cardiomegaly. Bones/joints: No acute findings. XR/XR chest 1V portable [id number] IMPRESSION: No acute findings.
[2023-07-17 16:09] LABS: Basophils # 0.1 10^3/uL (0.0-0.1); Basophils % 1.1 %; Eosinophils # 0.5 10^3/uL (0.0-0.8); Eosinophils % 5.7 %; Hematocrit 43.9 % (37-53); Lymphocytes # 2.8 10^3/uL (0.8-4.8); Lymphocytes % 33.9 %; Mean Corpuscular HGB Conc 32.6 g/dL (30-55); Mean Corpuscular Hemoglobin 31.4 pg (27-33); Mean Corpuscular Volume 96.5 fl (82-101); Mean Platelet Volume 10.1 fL (7.4-10.4); Monocytes # 0.9 10^3/uL (0.2-0.9); Monocytes % 10.9 %; Neutrophils # 3.97 10^3/uL (1.8-7.7); Neutrophils % 48.2 %; Nucleated Red Blood Cells % 0 %; Platelet Count 200 10^3/cmm (157-399); Red Blood Count 4.55 10^6/uL (3.85-5.65); Red Cell Distribution Width 12.5 % (12.1-15.1); White Blood Count 8.25 10^3/uL (3.29-11.43)
--- NOTE | 2023-07-17 16:30 | ED.C_ITS ---
HPI - Psych 2 General: Chief Complaint: Psychiatric Symptoms Stated Complaint: MHE Time Seen by Provider: 07/17/23 15:40 Source: patient Mode of arrival: EMS History of Present Illness: 73-year-old male presents emergency room via EMS from a local clinic. There have been concerns at clinic about him harming himself. He has been seen at [facility] before years previously although I some antidepressant he had stopped that he is also been on Xanax and a decreased dose. Patient's about a year ago he is still extremely bereaved over this and discussion he brings up several issues that happened at he feels as if he may have mismanaged some of her medical care and hasten her . He has been concerned recently about making sure what worldly goods he has go to particularly family member. He was discussing that earlier today he is also worried about traveling back to [place] and visiting a friend in [place]. During the course of talking several times he began spontaneously crying over things that made him upset usually related to his 's passing. He adamantly denies being suicidal having any plan to harm himself he states he would not do that. MD complaint: suicidal ideation Onset (ago): month(s) History of same: Yes Relieving factors: none Exacerbating factors: none Associated symptoms: Reports depression; Deny auditory hallucinations, visual hallucinations, delusions, homicidal ideation, suicidal ideation, racing thoughts or other Review of Systems 2 Const: Denies: fever(s) or chills Card: Denies: chest pain Resp: Denies: dyspnea GI: Denies: abdominal pain : Denies: dysuria, urinary frequency or urinary urgency Musc: Denies: neck pain or back pain Skin/Breast: Denies: rash Psych: Reports: depression; Denies: visual hallucinations, auditory hallucinations, suicidal ideation or homicidal ideation PFS ED 2 PFSH: Medical History Anxiety Depression Psychiatric care Rheumatic arteritis Rheumatoid arthritis Social History Smoking and tobacco/nicotine status: never used tobacco/nicotine Physical Exam 2 Const: COMMON NORMALS: no acute distress GENERAL APPEARANCE: cooperative and comfortable ORIENTATION/CONSCIOUSNESS: Yes awake, Yes oriented to person, Yes oriented to place and Yes oriented to time HENMT: COMMON NORMALS: normocephalic, atraumatic and hearing grossly normal bilaterally HEAD & SCALP: normocephalic and atraumatic Resp: COMMON NORMALS: normal respiratory effort, No retractions, No use of accessory muscles and clear to auscultation bilaterally AUSCULTATION: clear to auscultation bilaterally Cardio: COMMON NORMALS: regular rate, regular rhythm and No murmurs present (Cardio) RATE: regular rate RHYTHM: regular rhythm Extremity: COMMON NORMALS: normal to inspection, capillary refill normal, no clubbing, cyanosis or edema, no calf tenderness and no pedal edema Neuro: SENSORIUM/ORIENTATION: Yes oriented to person, Yes oriented to place and Yes oriented to time Psych: THOUGHT CONTENT: No delusions Skin: COMMON NORMALS: no rashes or lesions noted GENERAL SKIN EXAM: no rashes or lesions noted Course 2 Vital Signs: Vital signs: Vital Signs Temperature 98.7 F 07/17/23 15:41 Pulse Rate 55 L 07/17/23 15:41 Respiratory Rate 18 07/17/23 15:41 Blood Pressure 111/76 07/17/23 15:41 Pulse Oximetry 95 07/17/23 15:41 Oxygen Delivery Me thod Room Air 07/17/23 15:41 MDM - Psych Medical Decision Making Extensive discussion with patient while he is very depressed and has prolonged bereavement he is not really suicidal. He is making plans that also when he passes away that is belongings are handled in a way in which he intends them to be. Given the loss of his he is acutely aware of his own mortality. He repeatedly denies any suicidal intent or ideation. Discussed case with Dr. Barriga he agrees patient does not require admission. We did asked eligibility counselor service to come and discuss patient which actually was very helpful to the patient he was in a much better mood and affect at the time of discharge encouraged him to follow-up with [facility] Differential Diagnosis Likely depression Medical Records I reviewed the patient's medical records. Lab Data I reviewed the patient's lab results. 07/17/23 16:00 07/17/23 16:00 Radiology Impressions Chest X-Ray 07/17/23 15:41 IMPRESSION: No acute findings. Laboratory Results WBC 8.25 10^3/uL (3.29-11.43) 07/17/23 16:00 RBC 4.55 10^6/uL (3.85-5.65) 07/17/23 16:00 Hgb 14.30 g/dL (11.27-16.99) 07/17/23 16:00 Hct 43.9 % (37-53) 07/17/23 16:00 MCV 96.5 fl (82-101) 07/17/23 16:00 MCH 31.4 pg (27-33) 07/17/23 16:00 MCHC 32.6 g/dL (30-55) 07/17/23 16:00 RDW 12.5 % (12.1-15.1) 07/17/23 16:00 Plt Count 200 10^3/cmm (157-399) 07/17/23 16:00 MPV 10.1 fL (7.4-10.4) 07/17/23 16:00 Neut % (Auto) 48.2 % 07/17/23 16:00 Lymph % (Auto) 33.9 % 07/17/23 16:00 [place] % (Auto) 10.9 % 07/17/23 16:00 Eos % (Auto) 5.7 % 07/17/23 16:00 Baso % (Auto) 1.1 % 07/17/23 16:00 Neut # (Auto) 3.97 10^3/uL (1.8-7.7) 07/17/23 16:00 Lymph # (Auto) 2.8 10^3/uL (0.8-4.8) 07/17/23 16:00 [place] # (Auto) 0.9 10^3/uL (0.2-0.9) 07/17/23 16:00 Eos # (Auto) 0.5 10^3/uL (0.0-0.8) 07/17/23 16:00 Baso # (Auto) 0.1 10^3/uL (0.0-0.1) 07/17/23 16:00 Nucleated RBC % (auto) 0 % 07/17/23 16:00 Nucleated RBCs # 0.0 /100WBC 07/17/23 16:00 Sodium 140 mmol/L (136-145) 07/17/23 16:00 Potassium 3.7 mmol/L (3.5-5.1) 07/17/23 16:00 Chloride 100 mmol/L (98-107) 07/17/23 16:00 Carbon Dioxide 30 mmol/L (22-29) H 07/17/23 16:00 Anion Gap 13.7 (5-19) 07/17/23 16:00 BUN 21 mg/dL (8-23) 07/17/23 16:00 Creatinine 0.8 mg/dL (0.7-1.2) 07/17/23 16:00 GFR Calculation Not Reportable 07/17/23 16:00 Glucose 95 mg/dL (65-115) 07/17/23 16:00 Calculated Osmolality 291 mOsm/kg (285-295) 07/17/23 16:00 Calcium 8.7 mg/dL (8.5-10.5) 07/17/23 16:00 Total Bilirubin 0.5 mg/dL (0.15-1.2) 07/17/23 16:00 AST 18 U/L (0-40) 07/17/23 16:00 ALT 11 U/L (0-41) 07/17/23 16:00 Alkaline Phosphatase 72 U/L (40-130) 07/17/23 16:00 Total Protein 7.3 g/dL (6.6-8.7) 07/17/23 16:00 Albumin 4.0 g/dL (3.5-5.2) 07/17/23 16:00 Globulin 3.3 g/dL (1.3-4.6) 07/17/23 16:00 Salicylates 0.5 mg/dL (3-10) L 07/17/23 16:00 Acetaminophen < 5.0 ug/mL (10-30) L 07/17/23 16:00 Ethyl Alcohol < 10 mg/dL (0-10) 07/17/23 16:00 No radiology studies performed this visit Discharge Plan Discharge Patient Disposition: Home Clinical Impression: Depression, Grief reaction with prolonged bereavement Condition: Stable Prescriptions: New escitalopram oxalate 10 mg tablet 10 mg PO DAILY Qty: 30 0RF No Action prednisone 5 mg tablet See Rx Instructions PO DAILY PRN (Reason: pain) Qty: 60 0RF Rx Instructions: 1-2 tablets daily prn orally daily PRN; Humira Pen 40 mg/0.8 mL pen injector kit 40 mg SUBCUT Q14D Qty: 2 6RF aspirin 325 mg Tablet 325 mg PO QPM alprazolam 1 mg tablet 1 mg PO BEDTIME PRN (Reason: Insomnia) morphine 30 mg tablet extended release 30 mg PO Q8H Rx Instructions: ALONG WITH 15MG TO - 45MG tamsulosin 0.4 mg capsule PO morphine 15 mg tablet extended release 15 mg PO Q8H Rx Instructions: ALONG WITH 30MG TO = 45MG bupropion HCl 150 mg tablet extended release 24 hr 150 mg PO QAM Vitamin D3 50 mcg (2,000 unit) Capsule 50 mcg PO DAILY acetaminophen [Tylenol Ex Str Rapid Release] 500 mg Tablet 1,000 mg PO Q6H PRN (Reason: Pain) Discharge Orders: Discharge ED (Routine); Ordered 07/17/23 Ordered By: Kingsley Ng Referrals: SEFERINO CAMARA [Primary Care Provider] - Discharge Diet: Usual diet Discharge Activity: Resume usual activity Patient Instructions: Opioid Safety, Pain Management Activity Restrictions/Additional Instructions: Thank you for choosing [facility] for your healthcare needs today. Please realize this is an emergency room and that we are providing you with a medical screening exam and this may not be complete and all inclusive of all the testing and or work up that you may need to determine your ailment or severity of your illness. It is very important that you follow up as instructed or that you return to the Emergency Department should you have concerns or if your condition changes or worsens in any way. Follow-up with [facility] as previously scheduled Coding Level of Care Code ED Train System Operator for Geraldo Peoples
[2023-07-17 16:35] LABS: Chloride 100 mmol/L (98-107); Potassium 3.7 mmol/L (3.5-5.1); Sodium 140 mmol/L (136-145)
[2023-07-17 16:49] LABS: Acetaminophen < 5.0 ug/mL (10-30); Alanine Aminotransferase 11 U/L (0-41); Alcohol Level < 10 mg/dL (0-10); Alkaline Phosphatase 72 U/L (40-130); Anion Gap 13.7 (5-19); Aspartate Amino Transferase 18 U/L (0-40); Blood Urea Nitrogen 21 mg/dL (8-23); Calcium 8.7 mg/dL (8.5-10.5); Carbon Dioxide 30 mmol/L (22-29); Creatinine Clr Calc Pharmacy 86.0278; Globulin 3.3 g/dL (1.3-4.6); Glucose 95 mg/dL (65-115); Osmolality Calculated 291 mOsm/kg (285-295); Salicylate 0.5 mg/dL (3-10); Total Bilirubin 0.5 mg/dL (0.15-1.2); Total Protein 7.3 g/dL (6.6-8.7)
== END 2023-07-17 18:01 | disposition home or self-care (01) ==
PROVIDERS: Emergency Provider Family Medicine; PCP Nurse Practitioner Adult Health
DX: F32.A Depression, unspecified (principal); F43.81 Prolonged grief disorder; Z79.82 Long term (current) use of aspirin
CPT/HCPCS: 36415; 71045; 80053; 80307; 85025; 99284

== ENCOUNTER → 2024-04-16 13:05 | Outpatient (BNVA) | payer OTHER, SELFPAY | PROVIDERS: Visit Provider Internal Medicine Rheumatology | DX: N63.0 Unspecified lump in unspecified breast (principal); N64.4 Mastodynia; M06.9 Rheumatoid arthritis, unspecified; Z79.899 Other long term (current) drug therapy; M05.79 Rheumatoid arthritis with rheumatoid factor of multiple sites without organ or systems involvement; J03.90 Acute tonsillitis, unspecified | CPT/HCPCS: 36415; 80076; 82565; 85025; 85651; 86140; 99215 ==

== ENCOUNTER 2024-07-03 11:50 | Outpatient (CLI) | payer OTHER, SELFPAY ==
--- NOTE | 2024-07-03 12:07 | MM_ITS ---
WS: [id number] BILATERAL 3D TOMOSYNTHESIS DIGITAL DIAGNOSTIC MAMMOGRAPHY WITH CAD CLINICAL INFORMATION: Breast pain COMPARISON: None. TECHNIQUE: Bilateral CC, MLO, and ML views. FINDINGS: The breasts are composed of heterogeneous fibroglandular density, which can limit the detection of small underlying mass lesions. Dense parenchymal tissue in the subareolar regions bilaterally. Ultrasound of the area of pain RIGHT breast is pending. ULTRASOUND BREAST BILATERAL TECHNIQUE: Ultrasound bilateral breast focused area of concern. FINDINGS: Bilateral shadowing dense breast tissue in the subareolar regions compatible with gynecomastia. No suspicious cystic or solid lesions in the area of pain RIGHT breast at the 9 o'clock position 2 cm from the nipple patient directed. No other suspicious findings. MM/MM diag BI tomosynthesis [id number] IMPRESSION: DENSITY: The breasts are heterogeneously dense, which may obscure small masses. BI-RADS: 2 - Benign FOLLOW UP: See Report
== END 2024-07-03 11:51 | disposition home or self-care (01) ==
PROVIDERS: Visit Provider Family Medicine
DX: N64.4 Mastodynia (principal); R92.333 Mammographic heterogeneous density, bilateral breasts; N63.15 Unspecified lump in the right breast, overlapping quadrants
CPT/HCPCS: 76642; 77062; G0279

== ENCOUNTER → 2024-07-16 14:51 | Outpatient (BNVA) | payer OTHER, SELFPAY | PROVIDERS: Visit Provider Internal Medicine Rheumatology | DX: M05.79 Rheumatoid arthritis with rheumatoid factor of multiple sites without organ or systems involvement (principal); N64.4 Mastodynia; Z79.899 Other long term (current) drug therapy; J03.90 Acute tonsillitis, unspecified | CPT/HCPCS: 99214 ==

== ENCOUNTER → 2024-09-11 09:34 | Outpatient (BNVA) | payer OTHER, SELFPAY | PROVIDERS: Visit Provider Podiatrist Foot & Ankle Surgery | DX: M79.671 Pain in right foot (principal); M79.672 Pain in left foot; M20.11 Hallux valgus (acquired), right foot; M20.12 Hallux valgus (acquired), left foot; M20.41 Other hammer toe(s) (acquired), right foot; M20.42 Other hammer toe(s) (acquired), left foot; M21.612 Bunion of left foot; M21.611 Bunion of right foot | CPT/HCPCS: 73630; 99204 ==

== ENCOUNTER → 2024-10-23 09:38 | Outpatient (BNVA) | payer OTHER, SELFPAY | PROVIDERS: Referring Provider Internal Medicine Rheumatology; Visit Provider Internal Medicine | DX: N64.4 Mastodynia (principal); N62 Hypertrophy of breast; Z79.899 Other long term (current) drug therapy | CPT/HCPCS: 99204 ==

== ENCOUNTER → 2024-10-28 08:33 | Outpatient (BNVA) | payer OTHER, SELFPAY | PROVIDERS: Visit Provider Internal Medicine | DX: N64.4 Mastodynia (principal); M05.79 Rheumatoid arthritis with rheumatoid factor of multiple sites without organ or systems involvement; F41.9 Anxiety disorder, unspecified; Z79.899 Other long term (current) drug therapy | CPT/HCPCS: 80053; 82670; 83001; 83002; 84146; 84270; 84403; 84439; 84443 ==

== ENCOUNTER → 2024-11-06 14:20 | Outpatient (BNVA) | payer OTHER, SELFPAY | PROVIDERS: Visit Provider Internal Medicine Rheumatology | DX: M05.79 Rheumatoid arthritis with rheumatoid factor of multiple sites without organ or systems involvement (principal); N64.4 Mastodynia; Z79.899 Other long term (current) drug therapy; J03.90 Acute tonsillitis, unspecified | CPT/HCPCS: 99214 ==

== ENCOUNTER → 2025-03-24 13:17 | Outpatient (BNVA) | payer OTHER, SELFPAY | PROVIDERS: Visit Provider Internal Medicine Rheumatology | DX: M05.79 Rheumatoid arthritis with rheumatoid factor of multiple sites without organ or systems involvement (principal); N64.4 Mastodynia; Z79.899 Other long term (current) drug therapy; J03.90 Acute tonsillitis, unspecified | CPT/HCPCS: 99214 ==

== ENCOUNTER 2025-05-08 06:56 | Outpatient (CLI) | payer OTHER, SELFPAY ==
--- NOTE | 2025-05-08 07:09 | CT_ITS ---
WS: [id number] CT HEAD NONCONTRAST HISTORY: ODD SENSATIONS (VIBRATION) ON LT SIDE TECHNIQUE: Contiguous axial imaging performed through the brain. Bone and soft tissue windows. Sagittal and coronal reformats reviewed. All CT scans at [facility] use at least one of these dose optimization techniques: automated exposure control; mA and/or kV adjustment per patient size (includes targeted exams where dose is matched to clinical indication); or iterative reconstruction. DLP: 1161.48 mGy.cm COMPARISON: 04/09/2021 No acute intracranial hemorrhage, midline shift or mass effect. Mild atrophy and small vessel changes. No prior infarcts. Mild cerebellar atrophy. Ventricles: Normal size with no hydrocephalus. Small amount of calcified plaque in the intracranial carotid arteries. Paranasal sinuses: As visualized are clear. Mastoid air cells: Well pneumatized. Calvarium and scalp: Skull is intact with no soft tissue edema or swelling. CT/CT head wo con* [id number] IMPRESSION: 1. No acute intracranial hemorrhage or edema. 2. Mild cerebral and cerebellar atrophy with mild small vessel disease. Nidia villalba to the prior study.
== END 2025-05-08 06:57 | disposition home or self-care (01) ==
PROVIDERS: PCP Family Medicine Geriatric Medicine; Visit Provider Family Medicine Geriatric Medicine
DX: I67.89 Other cerebrovascular disease (principal); G31.9 Degenerative disease of nervous system, unspecified
CPT/HCPCS: 70450